=== PATIENT | female | born 1945 | race Caucasian/White ===

== ENCOUNTER 2016-06-29 16:20 | Emergency (ER) | payer MEDICARE, OTHER ==
[2016-06-29 16:34] VITALS: TEMP 98.4
--- NOTE | 2016-06-29 17:12 | ED ---
Skin/Abscess/FB HPI - General Chief complaint: Skin/Abscess/Foreign Body Stated complaint: Skin Condition Time Seen by Provider: 06/29/16 16:57 Source: patient, RN notes reviewed Mode of arrival: ambulatory Limitations: no limitations - History of Present Illness Initial comments: Patient is a 70-year-old female presents emergency room for evaluation of a rash. Patient states she began developing rash over bilateral arms and back with a past 3 days. Patient states the rash is very itchy. Patient states she' s been itching at the area which has been causing scabs. Patient states she had an area over her right upper arm that she was itching and causes a large scab. Patient denies any pus or drainage. Patient denies any surrounding redness or streaking. Patient denies fevers or chills. Patient denies recent changes in body lotions, detergents, body washes, shampoos, conditioners, perfumes. Patient states that she's also experiencing vaginal irritation. Patient states the area is very itchy. Patient states she was wiping herself after urinating and noticed blood on the toilet paper. Patient also states she' s having slight pain and burning during urination. Patient does state she has a history of urinary tract infections. Patient states she hasn't been sexually active in many years. Patient denies abdominal pain. Patient denies flank pain. Patient denies nausea or vomiting. Patient denies headache or dizziness. Patient denies chest pain or shortness of breath. - Related Data Home Medications Medication Instructions Recorded Confirmed cloNIDine HCL [Clonidine HCl] 0.1 mg PO BID 06/29/15 06/29/16 metFORMIN HCL [Glucophage] 500 mg PO AC-BID 10/07/15 06/29/16 Calcium Carbonate [Calcium] 600 mg PO DAILY 06/29/16 06/29/16 Cholecalciferol [Vitamin D3] 1,000 unit PO DAILY 06/29/16 06/29/16 Cyanocobalamin (Vitamin B-12) 1,000 mcg PO DAILY 06/29/16 06/29/16 [Vitamin B-12] HYDROcodone/APAP 10-325MG [[place] 1 tab PO QID PRN 06/29/16 06/29/16 10-325] Previous Rx's Medication Instructions Recorded Cephalexin [Keflex] 500 mg PO Q6HR #40 cap 06/29/16 Mupirocin 2% Oint [Bactroban 2% 1 applic TOPICAL TID 10 Days 06/29/16 Oint] Allergies Allergy/AdvReac Type Severity Reaction Status Date / Time hydroxyzine HCl Allergy Intermediate Hallucinati Verified 06/29/16 17:29 [From Vistaril] ons hydroxyzine pamoate Allergy Intermediate Hallucinati Verified 06/29/16 17:29 [From Vistaril] ons promethazine HCl Allergy Intermediate Anaphylaxis Verified 06/29/16 17:29 [From Phenergan] codeine Allergy Mild Nausea Verified 06/29/16 17:29 sulfamethoxazole Allergy Mild Nausea Verified 06/29/16 17:29 [From Bactrim] trimethoprim [From Bactrim] Allergy Mild Nausea Verified 06/29/16 17:29 prochlorperazine edisylate Allergy Unknown Verified 06/29/16 17:29 [From Compazine] prochlorperazine maleate Allergy Unknown Verified 06/29/16 17:29 [From Compazine] Review of Systems ROS Statement: Those systems with pertinent positive or pertinent negative responses have been documented in the HPI. ROS Other: All systems not noted in ROS Statement are negative. 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 SHE DRIVES A CAR. Smoking Status: Never smoker Past Alcohol Use History: None Reported Past Drug Use History: None Reported Additional Drug Use History / Comment(s): PT HAS NOT USED OPIATES IN 3 YEARS. - Past Family History Father Family Medical History: COPD Additional Family Medical History / Comment(s): FATHER AT AGE 72 YRS OF AGE - HE OF EMPHYSEMA. Mother Family Medical History: Diabetes Mellitus Additional Family Medical History / Comment(s): MOTHER AT AGE 73YRS. General Exam - General Exam Comments Initial Comments: sitting in exam room, no acute distress. Limitations: no limitations General appearance: alert, in no apparent distress Head exam: Present: atraumatic, normocephalic, normal inspection Eye exam: Present: normal appearance ENT exam: Present: normal exam Neck exam: Present: normal inspection Respiratory exam: Present: normal lung sounds bilaterally. Absent: respiratory distress Cardiovascular Exam: Present: regular rate, normal rhythm, normal heart sounds Speculum exam: Present: erythema, other (erythematous, chapped area around the vaginal opening and b/l labia majora). Absent: vaginal discharge Neurological exam: Present: alert, oriented X3, CN II-XII intact, normal gait Psychiatric exam: Present: normal affect, normal mood Skin exam: Present: warm, dry, other (multiple scab-like lesions over bilateral arms. Large 3 cm in diameter scab over the right upper arm.no surrounding erythema. No streaking. No pus or drainage from the areas.) Course Vital Signs 06/29/16 06/29/16 16:31 18:30 Temperature 98.4 F Pulse Rate 102 H 86 Respiratory 20 18 Rate Blood Pressure 139/84 156/84 O2 Sat by Pulse 96 99 Oximetry Medical Decision Making - Medical Decision Making patient is a 70-year-old female presents to the emergency room for evaluation of rash. Patient does appear to have folliculitis type rash. Patient does have excoriations from itching as well. Patient has a large scab Over right upper arm. Will place patient on Mupirocen ointment. Urinalysis also suspicious for urinary tract infection. Place patient on Keflex for prophylactic treatment for any skin infection secondary to itching and for urinary tract infection. patient's vaginal irritation possibly secondary to atrophic vaginitis. Advised patient to follow-up with [facility] for further evaluation/treatment. Patient states she understands everything that was discussed with her. Return parameters discussed. Case discussed with Dr. Moreno. - Lab Data Lab Results 06/29/16 Range/Units 17:14 Urine Color Light Yellow Urine Appearance Clear (Clear) Urine pH 6.0 (5.0-8.0) Ur Specific [place] 1.012 (1.001-1.035) Urine Protein Negative (Negative) Urine Glucose (UA) Negative (Negative) Urine Ketones Negative (Negative) Urine Blood Negative (Negative) Urine Nitrite Negative (Negative) Urine Bilirubin Negative (Negative) Urine Urobilinogen <2.0 (<2.0) mg/dL Ur Leukocyte Esterase Large H (Negative) Urine RBC 2 (0-5) /hpf Urine WBC 7 H (0-5) /hpf Urine Bacteria Rare H (None) /hpf Disposition Clinical Impression: Urinary tract infection, Atrophic vaginitis, Rash Disposition: HOME SELF-CARE Condition: Good Instructions: Urinary Tract Infection in Women (ED), Folliculitis (ED), Vaginal Atrophy (ED) Additional Instructions: Take antibiotics as directed. Apply mupirocin ointment to affected area as directed. Take benadryl every 4-6 hours as needed. Please follow up with primary care provider for reevaluation in 24-48 hours. Please follow-up with OB /[facility]. If any new symptom arises or symptoms worsen, return to ER as soon as possible. Prescriptions: Cephalexin [Keflex] 500 mg PO Q6HR #40 cap Mupirocin 2% Oint [Bactroban 2% Oint] 1 applic TOPICAL TID 10 Days Referrals: Rachel Valladares DO [Primary Care Provider] - 1-2 days Ashley Dumont MD [STAFF PHYSICIAN] - 1-2 days Time of Disposition: 18:03
[2016-06-29 17:39] LABS: Appearance,Urine Clear (Clear); Bacteria,Urine Rare /hpf; Bilirubin,Urine Negative (Negative); Glucose,Urine (UA) Negative (Negative); Ketones,Urine Negative (Negative); Leukocyte Esterase,Urine Large (Negative); Nitrite,Urine Negative (Negative); Particle Count 544; Protein,Urine Negative (Negative); RBC,Urine 2 /hpf (0-5); Specific Gravity,Urine 1.012 (1.001-1.035); UA Billing (MACRO vs. MICRO) MICRO; Urobilinogen,Urine <2.0 mg/dL (<2.0); WBC,Urine 7 /hpf (0-5)
[2016-06-29 18:31] VITALS: BP 156/84; PULSE 86; RESP 18
== END 2016-06-29 18:42 | disposition home or self-care (01) ==
LOC: EC 16:20
DX: N95.2 Postmenopausal atrophic vaginitis (principal); R21 Rash and other nonspecific skin eruption; E11.9 Type 2 diabetes mellitus without complications; I10 Essential (primary) hypertension; Z79.84 Long term (current) use of oral hypoglycemic drugs; Z79.899 Other long term (current) drug therapy; Z88.1 Allergy status to other antibiotic agents; Z88.5 Allergy status to narcotic agent; Z88.8 Allergy status to other drugs, medicaments and biological substances
CPT/HCPCS: 81001; 99283

== ENCOUNTER 2016-07-29 14:29 | Emergency (ER) | payer MEDICARE ==
[2016-07-29 14:33] VITALS: BP 136/68; PULSE 98; RESP 18; TEMP 98.3
--- NOTE | 2016-07-29 15:01 | ED ---
Lower Extremity Injury HPI - General Chief Complaint: Extremity Injury, Lower Stated Complaint: leg pain Time Seen by Provider: 07/29/16 14:43 Source: patient Mode of arrival: ambulatory Limitations: no limitations - History of Present Illness Initial Comments: 70-year-old female complaining of right knee pain for the last few weeks. Patient states that got worse yesterday after falling. Patient daughter states she has been under a lot of stress with her being ill. Patient states painful in the front of her knee. No previous injury no surgical history. She denies any numbness or tingling of that lower extremity. No back pain. Patient denies any head injury or loss of consciousness. Patient states it hurts to bear weight but is able to ambulate. MD Complaint: knee injury (right knee) -: days(s) Improves With: nothing Worsens With: weight bearing, movement, palpation Context: fall Associated Symptoms: ambulatory Treatments Prior to Arrival: NSAIDS - Related Data Home Medications Medication Instructions Recorded Confirmed cloNIDine HCL [Clonidine HCl] 0.1 mg PO BID 06/29/15 07/29/16 metFORMIN HCL [Glucophage] 500 mg PO AC-BID 10/07/15 07/29/16 Calcium Carbonate [Calcium] 600 mg PO DAILY 06/29/16 07/29/16 Cholecalciferol [Vitamin D3] 1,000 unit PO DAILY 06/29/16 07/29/16 Cyanocobalamin (Vitamin B-12) 1,000 mcg PO DAILY 06/29/16 07/29/16 [Vitamin B-12] HYDROcodone/APAP 10-325MG [[place] 1 tab PO QID PRN 06/29/16 07/29/16 10-325] Previous Rx's Medication Instructions Recorded Cephalexin [Keflex] 500 mg PO Q6HR #40 cap 06/29/16 Mupirocin 2% Oint [Bactroban 2% 1 applic TOPICAL TID 10 Days 06/29/16 Oint] Allergies Allergy/AdvReac Type Severity Reaction Status Date / Time hydroxyzine HCl Allergy Intermediate Hallucinati Verified 07/29/16 14:33 [From Vistaril] ons hydroxyzine pamoate Allergy Intermediate Hallucinati Verified 07/29/16 14:33 [From Vistaril] ons promethazine HCl Allergy Intermediate Anaphylaxis Verified 07/29/16 14:33 [From Phenergan] codeine Allergy Mild Nausea Verified 07/29/16 14:33 sulfamethoxazole Allergy Mild Nausea Verified 07/29/16 14:33 [From Bactrim] trimethoprim [From Bactrim] Allergy Mild Nausea Verified 07/29/16 14:33 prochlorperazine edisylate Allergy Unknown Verified 07/29/16 14:33 [From Compazine] prochlorperazine maleate Allergy Unknown Verified 07/29/16 14:33 [From Compazine] Review of Systems ROS Statement: Those systems with pertinent positive or pertinent negative responses have been documented in the HPI. ROS Other: All systems not noted in ROS Statement are negative. 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 Past Anesthesia/Blood Transfusion Reactions: No Reported Reaction Past Psychological History: Anxiety, Depression Smoking Status: Never smoker Past Alcohol Use History: None Reported Past Drug Use History: None Reported - Past Family History Father Family Medical History: COPD Additional Family Medical History / Comment(s): FATHER AT AGE 72 YRS OF AGE - HE OF EMPHYSEMA. Mother Family Medical History: Diabetes Mellitus Additional Family Medical History / Comment(s): MOTHER AT AGE 73YRS. General Exam Limitations: no limitations General appearance: alert, in no apparent distress Extremities exam: Present: normal inspection, full ROM, normal capillary refill. Absent: tenderness, pedal edema, joint swelling, calf tenderness Right Upper Leg exam: Present: normal inspection Knee exam: Present: normal inspection, full ROM, tenderness (right anterior knee ), swelling, pain/laxity with valgus Lower Leg exam: Present: normal inspection Neurological exam: Present: alert, oriented X3, CN II-XII intact Course Vital Signs 07/29/16 14:29 Temperature 98.3 F Pulse Rate 98 Respiratory 18 Rate Blood Pressure 136/68 O2 Sat by Pulse 94 L Oximetry Medical Decision Making - Medical Decision Making Reviewed x-ray negative for any acute changes patient aware. Slight degenerative changes noted. Andrzej wrap given patient to follow-up if not improving. Disposition Clinical Impression: Contusion of knee Disposition: HOME SELF-CARE Condition: Good Instructions: Knee Sprain (ED), Knee Pain (ED) Referrals: Rachel Valladares DO [Primary Care Provider] - 1-2 days Joshua Márquez MD [Medical Doctor] - 1-2 days Time of Disposition: 15:11
--- NOTE | 2016-07-29 15:08 | XR ---
EXAMINATION TYPE: XR knee 4V RT DATE OF EXAM: 07/29/2016 COMPARISON: 06/29/2015 HISTORY: Knee pain TECHNIQUE: 4 views FINDINGS: There is spurring of the medial femoral and tibial condyles. There is no sign of joint effu annette. I see no fracture nor dislocation. There is slight narrowing of medial joint space. IMPRESSION: Mild to moderate osteoarthritis. No fracture. No change.
== END 2016-07-29 15:15 | disposition home or self-care (01) ==
LOC: EC 14:29
DX: S80.01XA Contusion of right knee, initial encounter (principal); M25.861 Other specified joint disorders, right knee; E11.9 Type 2 diabetes mellitus without complications; I10 Essential (primary) hypertension; Z88.2 Allergy status to sulfonamides; Z88.5 Allergy status to narcotic agent; Z88.8 Allergy status to other drugs, medicaments and biological substances; Z79.84 Long term (current) use of oral hypoglycemic drugs; Z79.899 Other long term (current) drug therapy; W19.XXXA Unspecified fall, initial encounter
CPT/HCPCS: 99283

== ENCOUNTER 2016-09-26 23:06 | Emergency (ER) | payer MEDICARE ==
[2016-09-26 23:26] VITALS: RESP 16
--- NOTE | 2016-09-26 23:38 | ED ---
General Adult HPI - General Chief complaint: Fall Stated complaint: Fall 2 days ago. Time Seen by Provider: 09/26/16 23:31 Source: patient, RN notes reviewed Mode of arrival: ambulatory Limitations: no limitations - History of Present Illness Initial comments: Patient 71-year-old female who presents emergency room today with a chief complaint of fall occurred 2 days ago. She does admit that she slipped on the bathroom floor fell down onto the right side. Does admit that she hit her head but did not lose conscious. Denies any headache or visual changes. Does admit to pain to the right shoulder. Admits to pain to her bilateral hips. States worse with certain movements of all these areas. She denies any other complaints associated symptoms. Patient denies any recent fever, chills, shortness of breath, chest pain, back pain, abdominal pain, nausea or vomiting, numbness or tingling, dysuria or hematuria, constipation or diarrhea, headaches or visual changes, or any other complaints. - Related Data Home Medications Medication Instructions Recorded Confirmed cloNIDine HCL [Clonidine HCl] 0.1 mg PO BID 06/29/15 09/26/16 metFORMIN HCL [Glucophage] 500 mg PO BID-W/MEALS 10/07/15 09/26/16 Calcium Carbonate [Calcium] 600 mg PO DAILY 06/29/16 09/26/16 Cholecalciferol [Vitamin D3] 1,000 unit PO DAILY 06/29/16 09/26/16 Cyanocobalamin (Vitamin B-12) 1,000 mcg PO DAILY 06/29/16 09/26/16 [Vitamin B-12] HYDROcodone/APAP 10-325MG [[place] 1 tab PO QID PRN 06/29/16 09/26/16 10-325] Omeprazole 20 mg PO DAILY 09/26/16 09/26/16 Allergies Allergy/AdvReac Type Severity Reaction Status Date / Time promethazine HCl Allergy Intermediate Anaphylaxis Verified 09/26/16 23:26 [From Phenergan] prochlorperazine Allergy Anaphylaxis Verified 09/26/16 23:45 codeine AdvReac Mild Nausea Verified 09/26/16 23:38 sulfamethoxazole AdvReac Mild Nausea Verified 09/26/16 23:38 [From Bactrim] trimethoprim [From Bactrim] AdvReac Mild Nausea Verified 09/26/16 23:38 hydroxyzine AdvReac Hallucinati Verified 09/26/16 23:45 ons Review of Systems ROS Statement: Those systems with pertinent positive or pertinent negative responses have been documented in the HPI. ROS Other: All systems not noted in ROS Statement are negative. 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 Past Anesthesia/Blood Transfusion Reactions: No Reported Reaction Past Psychological History: Anxiety, Depression Smoking Status: Never smoker Past Alcohol Use History: None Reported Past Drug Use History: None Reported - Past Family History Father Family Medical History: COPD Additional Family Medical History / Comment(s): FATHER AT AGE 72 YRS OF AGE - HE OF EMPHYSEMA. Mother Family Medical History: Diabetes Mellitus Additional Family Medical History / Comment(s): MOTHER AT AGE 73YRS. General Exam - General Exam Comments Initial Comments: General: The patient is awake and alert, in no distress, and does not appear acutely ill. Eye: Pupils are equal, round and reactive to light, extra-ocular movements are intact. No nystagmus. There is normal conjunctiva bilaterally. No signs of icterus. Ears, nose, mouth and throat: There are moist mucous membranes and no oral lesions. Neck: The neck is supple, there is no tenderness or JVD. Cardiovascular: There is a regular rate and rhythm. No murmur, rub or gallop is appreciated. Respiratory: Lungs are clear to auscultation, respirations are non-labored, breath sounds are equal. No wheezes, stridor, rales, or rhonchi. Musculoskeletal: Normal ROM. Patient does have a normal appearance of the right shoulder no signs of swelling bruising. Hips are normal bilaterally. Mild tenderness to the lateral aspect of the hips. Tender over the anterior and posterior aspect of the right shoulder shows full range motion of the right elbow and wrist area. No cervical, thoracic, lumbar spine tenderness. Strength 5/5. Sensation intact. Pulses equal bilaterally 2+. Neurological: A&O x 3. CN II-XII intact, There are no obvious motor or sensory deficits. Coordination appears grossly intact. Speech is normal. Skin: Skin is warm and dry and no rashes or lesions are noted. Psychiatric: Cooperative, appropriate mood & affect, normal judgment. Limitations: no limitations Course Vital Signs 09/26/16 23:21 Temperature 98.6 F Pulse Rate 96 Respiratory 16 Rate Blood Pressure 119/70 O2 Sat by Pulse 95 Oximetry Medical Decision Making - Medical Decision Making Patient's x-rays of the right shoulder, right and left hips reviewed negative for any acute fracture dislocation. Results were discussed with the patient. Patient will be discharged home advised follow-up orthopedics if symptoms persist. Advised return for any other concerns. She states her stay. Disposition Clinical Impression: Fall, Shoulder pain Disposition: HOME SELF-CARE Condition: Good Instructions: Shoulder Pain (ED) Additional Instructions: Please follow-up with orthopedics over the next 3-5 days if symptoms persist for further evaluation. Please return to emergency room if any symptoms increase or worsen or for any other concerns. Referrals: Rachel Valladares DO [Primary Care Provider] - 1-2 days Time of Disposition: 00:41
[2016-09-27 00:48] VITALS: BP 130/70; PULSE 92; TEMP 97.3
--- NOTE | 2016-09-27 00:49 | XR ---
EXAM: XR Pelvis Complete, 3 or More Views CLINICAL HISTORY: Pain TECHNIQUE: Frontal and lateral or oblique views of the pelvis. COMPARISON: No relevant prior studies available. FINDINGS: Bones/joints: No acute fracture or traumatic malalignment. Degenerative changes of the visualized lower lumbar spine and both hips. Soft tissues: Punctate calcifications are seen within the pelvis, likely phleboliths. IMPRESSION: No acute fracture or traumatic malalignment.
--- NOTE | 2016-09-27 00:49 | XR ---
EXAM: XR Right Shoulder Complete, 2 or More Views CLINICAL HISTORY: Reason: Pain TECHNIQUE: Two or more views of the right shoulder. COMPARISON: No relevant prior studies available. FINDINGS: Bones/joints: No evidence of acute fracture or traumatic malalignment. Abnormal contour of the posterolateral humeral head which may represent a Hill-Sachs deformity from prior trauma. Degenerative changes of the glenohumeral and acromioclavicular joint. Soft tissues: Unremarkable. IMPRESSION: No acute findings.
== END 2016-09-27 00:47 | disposition home or self-care (01) ==
LOC: EC 23:06
DX: M25.511 Pain in right shoulder (principal); M25.552 Pain in left hip; M25.551 Pain in right hip; E11.9 Type 2 diabetes mellitus without complications; M79.7 Fibromyalgia; K21.9 Gastro-esophageal reflux disease without esophagitis; I10 Essential (primary) hypertension; M19.90 Unspecified osteoarthritis, unspecified site; M06.9 Rheumatoid arthritis, unspecified; F32.9 Major depressive disorder, single episode, unspecified; F41.9 Anxiety disorder, unspecified; Z79.84 Long term (current) use of oral hypoglycemic drugs; Z79.899 Other long term (current) drug therapy; Z88.5 Allergy status to narcotic agent; Z88.2 Allergy status to sulfonamides; Z88.8 Allergy status to other drugs, medicaments and biological substances
CPT/HCPCS: 73521; 99283

== ENCOUNTER 2016-10-08 21:07 | Emergency (ER) | payer MEDICARE ==
--- NOTE | 2016-10-08 22:10 | XR ---
EXAMINATION TYPE: XR ribs LT w pa chest xray DATE OF EXAM: 10/08/2016 COMPARISON: NONE HISTORY: Left RIBS TECHNIQUE: Frontal chest 2V left RIBS FINDINGS: No acute displaced fractures are evident. No pneumothorax is evident. Lung harrell are clear . IMPRESSION: 1. Normal left ribs
--- NOTE | 2016-10-08 23:01 | ED ---
General Adult HPI - General Chief complaint: Fall Stated complaint: Weakness Time Seen by Provider: 10/08/16 21:37 Source: patient, RN notes reviewed Mode of arrival: wheelchair Limitations: no limitations - History of Present Illness Initial comments: 71-year-old female presents to the emergency room chief complaint of fall injury. Patient states that she was at her chest that she tripped and fell. Patient states she hit her head as well as left side of her ribs. Patient states this happened 3 days ago. Patient states she did not pass out. She denies any neck pain. She states she feels generally sore but the worst areas or her head in her ribs. Patient states that it was a chicken father is no lightheadedness dizziness no chest pain or shortness of breath prior to the fall. Patient was concerned due to her pain and the fact it was not improving so she thought that she should be seen. Patient denies any recent fever, chills , shortness of breath, back pain, abdominal pain, nausea vomiting, numbness or tingling, dysuria or hematuria, constipation or diarrhea, visual changes, or any other current symptoms. - Related Data Home Medications Medication Instructions Recorded Confirmed cloNIDine HCL [Clonidine HCl] 0.1 mg PO BID 06/29/15 10/08/16 metFORMIN HCL [Glucophage] 500 mg PO BID-W/MEALS 10/07/15 10/08/16 Calcium Carbonate [Calcium] 600 mg PO DAILY 06/29/16 10/08/16 Cholecalciferol [Vitamin D3] 1,000 unit PO DAILY 06/29/16 10/08/16 Cyanocobalamin (Vitamin B-12) 1,000 mcg PO DAILY 06/29/16 10/08/16 [Vitamin B-12] HYDROcodone/APAP 10-325MG [[place] 1 tab PO QID PRN 06/29/16 10/08/16 10-325] Omeprazole 20 mg PO DAILY 09/26/16 10/08/16 Allergies Allergy/AdvReac Type Severity Reaction Status Date / Time promethazine HCl Allergy Intermediate Anaphylaxis Verified 10/08/16 21:45 [From Phenergan] prochlorperazine Allergy Anaphylaxis Verified 10/08/16 21:45 codeine AdvReac Mild Nausea Verified 10/08/16 21:45 sulfamethoxazole AdvReac Mild Nausea Verified 10/08/16 21:45 [From Bactrim] trimethoprim [From Bactrim] AdvReac Mild Nausea Verified 10/08/16 21:45 hydroxyzine AdvReac Hallucinati Verified 10/08/16 21:45 ons Review of Systems ROS Statement: Those systems with pertinent positive or pertinent negative responses have been documented in the HPI. ROS Other: All systems not noted in ROS Statement are negative. 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 Past Anesthesia/Blood Transfusion Reactions: No Reported Reaction Past Psychological History: Anxiety, Depression Smoking Status: Never smoker Past Alcohol Use History: None Reported Past Drug Use History: None Reported - Past Family History Father Family Medical History: COPD Additional Family Medical History / Comment(s): FATHER AT AGE 72 YRS OF AGE - HE OF EMPHYSEMA. Mother Family Medical History: Diabetes Mellitus Additional Family Medical History / Comment(s): MOTHER AT AGE 73YRS. General Exam Limitations: no limitations General appearance: alert, in no apparent distress Head exam: Present: other (Forehead contusion) Eye exam: Present: normal appearance, PERRL, EOMI. Absent: scleral icterus, conjunctival injection, periorbital swelling ENT exam: Present: normal exam, mucous membranes moist Respiratory exam: Present: normal lung sounds bilaterally, chest wall tenderness (Left lateral chest wall no bruising noted). Absent: respiratory distress, wheezes, rales, rhonchi, stridor Cardiovascular Exam: Present: regular rate, normal rhythm, normal heart sounds. Absent: systolic murmur, diastolic murmur, rubs, gallop, clicks GI/Abdominal exam: Present: soft, normal bowel sounds. Absent: distended, tenderness, guarding, rebound, rigid Neurological exam: Present: alert, oriented X3, CN II-XII intact Psychiatric exam: Present: normal affect, normal mood Skin exam: Present: warm, dry, intact, normal color. Absent: rash Course Vital Signs 10/08/16 21:13 Temperature 97.1 F L Pulse Rate 83 Respiratory 16 Rate Blood Pressure 110/69 O2 Sat by Pulse 97 Oximetry Medical Decision Making - Medical Decision Making 71-year-old female presents emergency room chief complaint of fall. patient imaging reviewed. This time patient's imaging reveals no acute process. This time we discussed using Motrin Tylenol for pain and ice. We discussed return parameters follow-up and all patient's questions. He stated he understood they are given the plan. At this time and will be discharged home. - Radiology Data Radiology results: report reviewed, image reviewed Disposition Clinical Impression: Forehead contusion, Contusion of rib on left side Disposition: HOME SELF-CARE Condition: Stable Instructions: Fall Prevention for Older Adults (ED), Contusion in Adults (ED) Additional Instructions: Please use medication as discussed. Please follow up with family doctor if symptoms have not improved over the next two days. Please return to the emergency room if your symptoms increase or worsen or for any other concerns. Referrals: Rachel Valladares DO [Primary Care Provider] - 1-2 days Time of Disposition: 23:55
--- NOTE | 2016-10-08 23:51 | CT ---
CT Head without contrast INDICATION: pain TECHNIQUE: Axial cuts of the brain are obtained from the posterior fossa to the cranial vault. No IV contrast is administered. Radiation Dose: CTDIvol: 57.4 mGy DLP: 1047.1 mGy-cm This CT exam was performed using one or more of the following dose reduction techniques: automated exposure control, adjustment of the mA and/or kV according to patient size, and/or use of iterative reconstruction technique. COMPARISON: CT head 09/05/14 FINDINGS: No evidence for acute intracranial hemorrhage, hydrocephalus, or herniation. No evidence for a depressed calvarial fracture. 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 Partially empty sella. There is generalized volume loss. Scattered periventricular and subcortical hypoattenuation, nonspecific but likely related to chronic microvascular ischemic changes. Intracranial vascular calcifications. The bilateral mastoid air cells are essentially clear. Trace mucosal thickening of the right sphenoid sinus. IMPRESSION: No evidence for acute intracranial hemorrhage, hydrocephalus, or herniation. CT cervical spine without contrast INDICATION: pain TECHNIQUE: CT cervical spine without contrast. Radiation Dose: CTDIvol: 13.6 mGy DLP: 346.1 mGy-cm This CT exam was performed using one or more of the following dose reduction techniques: automated exposure control, adjustment of the mA and/or kV according to patient size, and/or use of iterative reconstruction technique. COMPARISON: none FINDINGS: Examination is limited by streak artifact. Evaluation for fractures is limited by decreased osseous mineralization. No definite evidence for an acute displaced fracture of the cervical spine. There appears to be trace anterolisthesis of C2/C3 and trace retrolisthesis of C6/C7, nonspecific and may be related to positioning/degenerative changes. No significant prevertebral edema is appreciated. Degenerative changes of the cervical spine. Carotid artery calcifications. Calcification of the aortic arch. There may be some scarring at the bilateral lung apices. Nonspecific scattered superior mediastinal lymph nodes. IMPRESSION: 1. No definite evidence for acute fracture of the cervical spine. If further evaluation is clinically warranted MRI may be considered. 2. There appears to be trace anterolisthesis of C2/C3 and trace retrolisthesis of C6/C7, nonspecific and may be related to positioning/degenerative changes.
[2016-10-08] MEDS ORDERED: KETOROLAC 60 MG/2 ML VIAL IM STA (23:54)
[2016-10-08] MEDS ORDERED: HYDROcodone/APAP 5-325MG 1 EACH TAB PO STA (23:57)
[2016-10-09 00:16] VITALS: BP 112/67; PULSE 82; RESP 18; TEMP 97.7
== END 2016-10-09 00:13 | disposition home or self-care (01) ==
LOC: EC 21:07
DX: S00.83XA Contusion of other part of head, initial encounter (principal); S20.212A Contusion of left front wall of thorax, initial encounter; E11.9 Type 2 diabetes mellitus without complications; M79.7 Fibromyalgia; K21.9 Gastro-esophageal reflux disease without esophagitis; I10 Essential (primary) hypertension; F32.9 Major depressive disorder, single episode, unspecified; F41.9 Anxiety disorder, unspecified; Z79.84 Long term (current) use of oral hypoglycemic drugs; Z79.899 Other long term (current) drug therapy; Z88.2 Allergy status to sulfonamides; Z88.5 Allergy status to narcotic agent; Z88.8 Allergy status to other drugs, medicaments and biological substances; W01.10XA Fall on same level from slipping, tripping and stumbling with subsequent striking against unspecified object, initial encounter; Y92.000 Kitchen of unspecified non-institutional (private) residence as the place of occurrence of the external cause
CPT/HCPCS: 70450; 72125; 99284

== ENCOUNTER 2017-11-14 12:32 | Emergency (ER) | payer MEDICARE ==
[2017-11-14 12:54] VITALS: RESP 18
--- NOTE | 2017-11-14 13:36 | ED ---
General Adult HPI - General Chief complaint: Dental/Oral Stated complaint: dental pain Source: patient Mode of arrival: ambulatory Limitations: no limitations - History of Present Illness Initial comments: Dictation was produced using [employer] dictation software. please excuse any grammatical, word or spelling errors. Chief Complaint: 72-year-old female with extremity poor dentition presents with left-sided dental pain. History of Present Illness: Patient is a 72-year-old female who insisted on checking herself in despite her being the main reason why they came to the hospital. She states she's been having multiple days of dental pain. She has poor dentition. She refuses to see the dentist. She requests antibiotics. Patient is uncooperative with physical examination. States that she denies any constitutional symptoms. The ROS documented in this emergency department record has been reviewed and confirmed by me. Those systems with pertinent positive or negative responses have been documented in the HPI. All other systems are other negative and/or noncontributory. - Related Data Home Medications Medication Instructions Recorded Confirmed Buprenorphine HCl/Naloxone HCl 1 film PO TID 11/14/17 11/14/17 [Suboxone 8 mg-2 mg Sl Film] busPIRone HCL [Buspar] 7.5 mg PO BID 11/14/17 11/14/17 Previous Rx's Medication Instructions Recorded Penicillin V Potassium [Pen Vee K] 500 mg PO QID 7 Days #28 tablet 11/14/17 Allergies Allergy/AdvReac Type Severity Reaction Status Date / Time promethazine HCl Allergy Intermediate Anaphylaxis Verified 11/14/17 13:22 [From Phenergan] prochlorperazine Allergy Anaphylaxis Verified 11/14/17 13:22 codeine AdvReac Mild Nausea Verified 11/14/17 13:22 sulfamethoxazole AdvReac Mild Nausea Verified 11/14/17 13:22 [From Bactrim] trimethoprim [From Bactrim] AdvReac Mild Nausea Verified 11/14/17 13:22 hydroxyzine AdvReac Hallucinati Verified 11/14/17 13:22 ons Review of Systems ROS Statement: Those systems with pertinent positive or pertinent negative responses have been documented in the HPI. ROS Other: All systems not noted in ROS Statement are negative. 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 Past Anesthesia/Blood Transfusion Reactions: No Reported Reaction Past Psychological History: Anxiety, Depression Smoking Status: Never smoker Past Alcohol Use History: None Reported Past Drug Use History: None Reported - Past Family History Father Family Medical History: COPD Additional Family Medical History / Comment(s): FATHER AT AGE 72 YRS OF AGE - HE OF EMPHYSEMA. Mother Family Medical History: Diabetes Mellitus Additional Family Medical History / Comment(s): MOTHER AT AGE 73YRS. General Exam - General Exam Comments Initial Comments: PHYSICAL EXAM: General Impression: Alert and oriented x3, not in acute distress HEENT: Normocephalic atraumatic, extra-ocular movements intact, pupils equal and reactive to light bilaterally, mucous membranes moist, shortened with poor dentition. Cardiovascular: Heart regular rate and rhythm, S1&S2 audible, no murmurs, rubs or gallops Chest: Lungs clear to auscultation bilaterally, no rhonchi, no wheeze, no rales Abdomen: Bowel sounds present, abdomen soft, non-tender, non-distended, no organomegaly Musculoskeletal: Pulses present and equal in all extremities, no peripheral edema Motor: Power 5/5 bilaterally, no focal deficits noted Neurological: CN II-XII grossly intact, no focal motor or sensory deficits noted Skin: Intact with no visualized rashes Psych: Normal affect and mood Limitations: no limitations Course Vital Signs 11/14/17 12:52 Temperature 98.9 F Pulse Rate 89 Respiratory 18 Rate Blood Pressure 166/80 O2 Sat by Pulse 95 Oximetry Medical Decision Making - Medical Decision Making ED course: 72-year-old female presents with dental pain. Patient is uncooperative with physical examination. Briefly oral examination did not show any gingival abscesses. Patient requests penicillin. She is unwilling to follow-up with the dentist secondary to personal reasons. Discussed patient that is very important that she follow up with dentist for further intervention. She states she'll consider it. Patient given prescription for penicillin. Patient hemodynamic stable. Patient be discharged. Disposition Clinical Impression: Pain, dental Disposition: HOME SELF-CARE Condition: Good Instructions: Toothache (ED) Prescriptions: Penicillin V Potassium [Pen Vee K] 500 mg PO QID 7 Days #28 tablet Is patient prescribed a controlled substance at d/c from ED?: No Referrals: Nova Pino MD [Primary Care Provider] - 1-2 days Time of Disposition: 13:36
[2017-11-14 14:10] VITALS: BP 129/60; PULSE 82; TEMP 98.6
== END 2017-11-14 14:08 | disposition home or self-care (01) ==
LOC: EC 12:32
DX: K08.89 Other specified disorders of teeth and supporting structures (principal); F41.9 Anxiety disorder, unspecified; F32.9 Major depressive disorder, single episode, unspecified; Z90.49 Acquired absence of other specified parts of digestive tract; Z90.710 Acquired absence of both cervix and uterus; Z79.899 Other long term (current) drug therapy; Z88.1 Allergy status to other antibiotic agents; Z88.2 Allergy status to sulfonamides; Z88.5 Allergy status to narcotic agent; Z88.8 Allergy status to other drugs, medicaments and biological substances
CPT/HCPCS: 99282

== ENCOUNTER 2018-07-11 08:02 | Emergency (ER) | payer MEDICARE ==
[2018-07-11 08:06] VITALS: BP 131/75; PULSE 90; RESP 18; TEMP 98
[2018-07-11] MEDS ORDERED: HYDROmorphone 0.5 MG/0.5 ML SYRINGE IM STA (08:21)
--- NOTE | 2018-07-11 08:24 | ED ---
General Adult HPI - General Chief complaint: Extremity Problem,Nontraumatic Stated complaint: lt knee pain Time Seen by Provider: 07/11/18 08:07 Source: patient Mode of arrival: ambulatory Limitations: no limitations - History of Present Illness Initial comments: Dictation was produced using [employer] dictation software. please excuse any grammatical, word or spelling errors. Chief Complaint: 72-year-old female with past medical history of bilateral knee arthritis presents with left knee pain. History of Present Illness: Patient is 72-year-old female she knows that she has significant osteoporosis arthritis to bilateral knees. Patient does not want surgery. She is on ibuprofen or free medications prescribed by her primary care physician. She was evaluated at her bases office yesterday for knee pain. She was scheduled to have outpatient labs performed. She did not go to get her labs performed. She states that she is having significant knee pain that is like her usual pain however increased in intensity. Denies any fever, chills or night sweats. Denies any swelling of the left lower extremity. The ROS documented in this emergency department record has been reviewed and confirmed by me. Those systems with pertinent positive or negative responses have been documented in the HPI. All other systems are other negative and/or noncontributory. PHYSICAL EXAM: General Impression: Alert and oriented x3, not in acute distress HEENT: Normocephalic atraumatic, extra-ocular movements intact, pupils equal and reactive to light bilaterally, mucous membranes moist. Cardiovascular: Heart regular rate and rhythm, S1&S2 audible, no murmurs, rubs or gallops Chest: Lungs clear to auscultation bilaterally, no rhonchi, no wheeze, no rales Abdomen: Bowel sounds present, abdomen soft, non-tender, non-distended, no organomegaly Musculoskeletal: Pulses present and equal in all extremities, no peripheral edema, bilateral hypertrophic joints, mild tenderness to palpation over the medial aspect, mild pain elicited with flexion and extension of the knees Motor: no focal deficits noted Neurological: CN II-XII grossly intact, no focal motor or sensory deficits noted, not ataxic Skin: Intact with no visualized rashes Psych: Normal affect and mood ED course: 72-year-old female presents with acute on chronic knee pain. She has a history of severe arthritis to surgery. She reports that she has been offered bilateral knee replacements however refused. Vital signs upon arrival are within acceptable limits. X-rays are nonacute. Patient given IM analgesia. Patient clear for discharge. Patient told to follow up with orthopedic surgery for outpatient management of these symptoms. Patient exhibiting pain seeking behavior. - Related Data Home Medications Medication Instructions Recorded Confirmed Buprenorphine HCl/Naloxone HCl 1 film PO TID 11/14/17 07/11/18 [Suboxone 8 mg-2 mg Sl Film] Acetaminophen Tab [Tylenol] 500 mg PO Q8H 07/11/18 07/11/18 Diazepam [Valium] 5 mg PO HS PRN 07/11/18 07/11/18 Penicillin V Potassium [Pen Vee K] 500 mg PO TID 07/11/18 07/11/18 Ecm-[id number]-Izjhg Acid 1 cap PO DAILY 07/11/18 07/11/18 [-U Capsule (formulary)] busPIRone HCL [Buspar] 7.5 mg PO QID 07/11/18 07/11/18 cloNIDine HCL [Catapres] 0.2 mg PO DAILY 07/11/18 07/11/18 Allergies Allergy/AdvReac Type Severity Reaction Status Date / Time promethazine HCl Allergy Intermediate Anaphylaxis Verified 07/11/18 08:05 [From Phenergan] Iodinated Contrast- Oral and Allergy Unknown Verified 07/11/18 08:40 IV Dye prochlorperazine Allergy Anaphylaxis Verified 07/11/18 08:05 codeine AdvReac Mild Nausea Verified 07/11/18 08:05 sulfamethoxazole AdvReac Mild Nausea Verified 07/11/18 08:05 [From Bactrim] trimethoprim [From Bactrim] AdvReac Mild Nausea Verified 07/11/18 08:05 hydroxyzine AdvReac Hallucinati Verified 07/11/18 08:05 ons Review of Systems ROS Statement: Those systems with pertinent positive or pertinent negative responses have been documented in the HPI. ROS Other: All systems not noted in ROS Statement are negative. 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 Past Anesthesia/Blood Transfusion Reactions: No Reported Reaction Past Psychological History: Anxiety, Depression Smoking Status: Never smoker Past Alcohol Use History: None Reported Past Drug Use History: None Reported - Past Family History Father Family Medical History: COPD Additional Family Medical History / Comment(s): FATHER AT AGE 72 YRS OF AGE- HE OF EMPHYSEMA. Mother Family Medical History: Diabetes Mellitus Additional Family Medical History / Comment(s): MOTHER AT AGE 73YRS. General Exam Limitations: no limitations Course Vital Signs 07/11/18 08:03 Temperature 98.0 F Pulse Rate 90 Respiratory 18 Rate Blood Pressure 131/75 O2 Sat by Pulse 100 Oximetry Disposition Clinical Impression: Knee pain Disposition: HOME SELF-CARE Condition: Good Instructions (If sedation given, give patient instructions): Knee Pain (ED) Is patient prescribed a controlled substance at d/c from ED?: No Referrals: Syed Schmidt MD [STAFF PHYSICIAN] - 1-2 days Time of Disposition: 09:12
--- NOTE | 2018-07-11 08:58 | XR ---
EXAMINATION TYPE: XR knee 4V LT DATE OF EXAM: 07/11/2018 COMPARISON: None HISTORY: Pain across patella TECHNIQUE: 4 view left knee is performed. FINDINGS: As a tiny medial tibial plateau spur. No joint effusion is evident. Joint spaces appear pre served. No acute fracture or dislocations are evident. Patellofemoral joint space appears normal. IMPRESSION: 1. No acute osseous abnormality left knee. Subtle degenerative changes may be in the medial compartm ent.
== END 2018-07-11 09:20 | disposition home or self-care (01) ==
LOC: EC 08:02
DX: M25.562 Pain in left knee (principal); I10 Essential (primary) hypertension; M79.7 Fibromyalgia; M19.90 Unspecified osteoarthritis, unspecified site; M06.9 Rheumatoid arthritis, unspecified; F32.9 Major depressive disorder, single episode, unspecified; F41.9 Anxiety disorder, unspecified; Z79.899 Other long term (current) drug therapy; Z88.5 Allergy status to narcotic agent; Z91.041 Radiographic dye allergy status; Z88.8 Allergy status to other drugs, medicaments and biological substances; Z88.1 Allergy status to other antibiotic agents; Z88.2 Allergy status to sulfonamides; Z53.29 Procedure and treatment not carried out because of patient's decision for other reasons
CPT/HCPCS: 73564; 99283; 96372; J1170

== ENCOUNTER → 2018-07-11 | Outpatient (CLI) | payer MEDICARE ==
[2018-07-11 10:30] LABS: HCT 37.2 % (34.0-46.0); MCH 29.2 pg (25.0-35.0); MCHC 32.4 g/dL (31.0-37.0); MCV 90.3 fL (80.0-100.0); Mean Platelet Volume 7.8; Platelet Count 158 k/uL (150-450); RBC 4.12 m/uL (3.80-5.40); RDW 15.1 % (11.5-15.5); WBC 5.8 k/uL (3.8-10.6)
[2018-07-11 12:50] LABS: Erythrocyte Sedimentation Rate 11 mm/hr (0-20)
[2018-07-11 17:23] LABS: Albumin 4.5 g/dL (3.80-4.90); Albumin/Globulin Ratio 2.65 (1.60-3.17); Anion Gap 7.4 mmol/L (4.00-12.00); Calcium 9.1 mg/dL (8.7-10.3); Carbon Dioxide 29.6 mmol/L (21.6-31.8); Globulin 1.7 g/dL (1.6-3.3); LDL Cholesterol,Calculated 23.4 mg/dL (0.0-131.0); Total Bilirubin 0.4 mg/dL (0.3-1.2); Total Protein 6.2 g/dL (6.2-8.2); VLDL Calculation 13.6 mg/dL (5.00-40.00)
== END | disposition home or self-care (01) ==
LOC: LABWHC1 09:38
PROVIDERS: ATTEND Internal Medicine
DX: G47.00 Insomnia, unspecified (principal); M25.50 Pain in unspecified joint
CPT/HCPCS: 36415; 80053; 80061; 84439; 84443; 85027; 85652

== ENCOUNTER 2018-09-07 18:20 | Emergency (ER) | payer MEDICARE ==
--- NOTE | 2018-09-07 18:54 | ED ---
General Adult HPI - General Chief complaint: Neuro Symptoms/Deficit Stated complaint: Facial numbness Time Seen by Provider: 09/07/18 18:33 Source: patient, RN notes reviewed Mode of arrival: ambulatory Limitations: no limitations - History of Present Illness Initial comments: Patient is a pleasant 72-year-old female presenting to the emergency Department with right facial paresthesias. Onset of symptoms was when she woke early this morning around 4:30. Symptoms have been steady since that time. Patient denies any weakness. No confusion. No speech problems. No difficulty with walking. Patient does have recent ear infection on the right side and her doctor gave her ear drops for this. - Related Data Home Medications Medication Instructions Recorded Confirmed Acetaminophen Tab [Tylenol] 500 mg PO Q8H PRN 07/11/18 09/07/18 Diazepam [Valium] 5 mg PO HS 07/11/18 09/07/18 Penicillin V Potassium [Pen Vee K] 500 mg PO TID 07/11/18 09/07/18 Aspirin 325 mg PO DAILY PRN 09/07/18 09/07/18 Buprenorphine HCl [Subutex] 8 mg SL TID PRN 09/07/18 09/07/18 Nprjklyj-Amdnucvbm-Pt Otic 2 drops BOTH EARS Q6H 09/07/18 09/07/18 [Cortisporin Otic Soln] Omeprazole 20 mg PO BID 09/07/18 09/07/18 busPIRone HCL 15 mg PO TID PRN 09/07/18 09/07/18 cloNIDine HCL [Catapres] 0.1 mg PO BID 09/07/18 09/07/18 Allergies Allergy/AdvReac Type Severity Reaction Status Date / Time promethazine HCl Allergy Intermediate Anaphylaxis Verified 09/07/18 19:07 [From Phenergan] Iodinated Contrast- Oral and Allergy Unknown Verified 09/07/18 19:07 IV Dye prochlorperazine Allergy Anaphylaxis Verified 09/07/18 19:07 codeine AdvReac Mild Nausea Verified 09/07/18 19:07 sulfamethoxazole AdvReac Mild Nausea Verified 09/07/18 19:07 [From Bactrim] trimethoprim [From Bactrim] AdvReac Mild Nausea Verified 09/07/18 19:07 hydroxyzine AdvReac Hallucinati Verified 09/07/18 19:07 ons Review of Systems ROS Statement: Those systems with pertinent positive or pertinent negative responses have been documented in the HPI. ROS Other: All systems not noted in ROS Statement are negative. Constitutional: Denies: fever Eyes: Denies: eye pain ENT: Denies: epistaxis Respiratory: Denies: cough Cardiovascular: Denies: chest pain Endocrine: Denies: fatigue Gastrointestinal: Denies: abdominal pain Genitourinary: Denies: dysuria Musculoskeletal: Denies: back pain Skin: Denies: rash Neurological: Reports: headache (Patient states she did have a mild headache earlier.), paresthesias. 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 Past Anesthesia/Blood Transfusion Reactions: No Reported Reaction Past Psychological History: Anxiety, Depression Smoking Status: Never smoker Past Alcohol Use History: None Reported Past Drug Use History: None Reported - Past Family History Father Family Medical History: COPD Additional Family Medical History / Comment(s): FATHER AT AGE 72 YRS OF AGE- HE OF EMPHYSEMA. Mother Family Medical History: Diabetes Mellitus Additional Family Medical History / Comment(s): MOTHER AT AGE 73YRS. General Exam Limitations: no limitations General appearance: alert, in no apparent distress Head exam: Present: atraumatic, normocephalic Eye exam: Present: normal appearance, PERRL, EOMI. Absent: nystagmus ENT exam: Present: normal exam, normal oropharynx, other (Minimal erythema right external canal) Neck exam: Present: normal inspection Respiratory exam: Present: normal lung sounds bilaterally Cardiovascular Exam: Present: regular rate, normal rhythm GI/Abdominal exam: Present: soft. Absent: tenderness Extremities exam: Present: normal inspection Neurological exam: Present: alert, oriented X3, CN II-XII intact. Absent: motor sensory deficit Expanded Neurological exam: Present: protecting the airway Speech: Present: fluid speech Cranial nerves: Facial Sensation: Normal Sensory exam: Upper Extremity Light Touch: Normal, Lower Extremity Light Touch: Normal Motor strength exam: RUE: 5, LUE: 5, RLE: 5, LLE: 5 Eye Response: (4) open spontaneously Motor Response: (6) obeys commands Verbal Response: (5) oriented Psychiatric exam: Present: normal affect, normal mood Skin exam: Present: normal color Course Vital Signs 09/07/18 09/07/18 18:27 19:39 Temperature 98.6 F Pulse Rate 87 73 Respiratory 16 18 Rate Blood Pressure 158/79 136/88 O2 Sat by Pulse 97 98 Oximetry Medical Decision Making - Medical Decision Making Patient reevaluated and resting comfortably in bed. Patient requests medication for anxiety. Exam unchanged. Patient updated on results and need for follow- up. - Lab Data Result diagrams: 09/07/18 19:09/07/18 19:01 Lab Results 09/07/18 09/07/18 09/07/18 Range/Units 19:01 19:01 19:01 WBC 8.3 (3.8-10.6) k/uL RBC 4.26 (3.80-5.40) m/uL Hgb 13.1 (11.4-16.0) gm/dL Hct 39.7 (34.0-46.0) % MCV 93.1 (80.0-100.0) fL MCH 30.8 (25.0-35.0) pg MCHC 33.1 (31.0-37.0) g/dL RDW 15.1 (11.5-15.5) % Plt Count 182 (150-450) k/uL Neutrophils % 56 % Lymphocytes % 33 % Monocytes % 5 % Eosinophils % 4 % Basophils % 1 % Neutrophils # 4.6 (1.3-7.7) k/uL Lymphocytes # 2.7 (1.0-4.8) k/uL Monocytes # 0.4 (0-1.0) k/uL Eosinophils # 0.4 (0-0.7) k/uL Basophils # 0.1 (0-0.2) k/uL PT 10.3 (9.0-12.0) sec INR 1.0 (<1.2) APTT 23.6 (22.0-30.0) sec Sodium 143 (137-145) mmol/L Potassium 4.1 (3.5-5.1) mmol/L Chloride 105 (98-107) mmol/L Carbon Dioxide 27 (22-30) mmol/L Anion Gap 11 mmol/L BUN 22 H (7-17) mg/dL Creatinine 0.79 (0.52-1.04) mg/dL Est GFR (CKD-EPI)AfAm 89 (>60 ml/min/1.73 sqM) Est GFR (CKD-EPI)NonAf 77 (>60 ml/min/1.73 sqM) Glucose 78 (74-99) mg/dL Calcium 9.3 (8.4-10.2) mg/dL Magnesium 2.1 (1.6-2.3) mg/dL Total Bilirubin 0.3 (0.2-1.3) mg/dL AST 32 (14-36) U/L ALT 21 (9-52) U/L Alkaline Phosphatase 64 (38-126) U/L Total Protein 7.2 (6.3-8.2) g/dL Albumin 4.5 (3.5-5.0) g/dL - Radiology Data Radiology results: report reviewed (Computed tomography scan of the brain shows atrophy and chronic small vessel disease.) Disposition Clinical Impression: Paresthesia Disposition: HOME SELF-CARE Condition: Stable Instructions (If sedation given, give patient instructions): Paresthesia (ED) Additional Instructions: Please follow-up with primary care physician in the next couple days for recheck. Return for weakness, confusion, speech problems, balance issues, worsening or changing symptoms or other concerns. Continue daily aspirin. Is patient prescribed a controlled substance at d/c from ED?: No Referrals: Nova Pino MD [Primary Care Provider] - 1-2 days Time of Disposition: 20:00
[2018-09-07 19:19] LABS: Basophils # (A) 0.1 k/uL (0-0.2); Basophils % (A) 1 %; Eosinophils # (A) 0.4 k/uL (0-0.7); Eosinophils % (A) 4 %; HCT 39.7 % (34.0-46.0); HGB 13.1 gm/dL (11.4-16.0); Lymphocytes # (A) 2.7 k/uL (1.0-4.8); Lymphocytes % (A) 33 %; MCH 30.8 pg (25.0-35.0); MCHC 33.1 g/dL (31.0-37.0); MCV 93.1 fL (80.0-100.0); Mean Platelet Volume 7.8; Monocytes # (A) 0.4 k/uL (0-1.0); Monocytes % (A) 5 %; Neutrophils # (A) 4.6 k/uL (1.3-7.7); Neutrophils % (A) 56 %; Platelet Count 182 k/uL (150-450); RBC 4.26 m/uL (3.80-5.40); RDW 15.1 % (11.5-15.5); WBC 8.3 k/uL (3.8-10.6)
[2018-09-07 19:23] LABS: Albumin 4.5 g/dL (3.5-5.0); Calcium 9.3 mg/dL (8.4-10.2); Magnesium 2.1 mg/dL (1.6-2.3); Partial Thromboplastin Time 23.6 sec (22.0-30.0); Potassium 4.1 mmol/L (3.5-5.1); Prothrombin Time 10.3 sec (9.0-12.0); Total Bilirubin 0.3 mg/dL (0.2-1.3); Total Protein 7.2 g/dL (6.3-8.2)
--- NOTE | 2018-09-07 19:25 | CT ---
EXAMINATION TYPE: CT brain wo con DATE OF EXAM: 09/07/2018 HISTORY: right side facial numbness CT DLP: 1095.4 mGycm. Automated Exposure Control for Dose Reduction was Utilized. TECHNIQUE: CT scan of the head is performed without contrast. COMPARISON: CT brain October 08, 2016 FINDINGS: There is no acute intracranial hemorrhage or midline shift identified. There is diffuse v entricular and sulcal prominence consistent with diffuse age-related cerebral atrophy. There is low- attenuation in the periventricular white matter consistent with chronic small vessel ischemic change. Left globe scleral calcification is redemonstrated. Visualized paranasal sinuses are clear. IMPRESSION: No acute intracranial hemorrhage or midline shift. There is mild diffuse age-related ce rebral atrophy and chronic small vessel ischemic change redemonstrated. No significant change from p rior. If clinical concern for acute stroke persist further investigation with MRI study may be sonya rios
[2018-09-07] MEDS ORDERED: LORazepam 1 MG TAB PO STA (19:59)
[2018-09-07 21:50] VITALS: BP 132/90; PULSE 20; RESP 20; TEMP 98
== END 2018-09-07 21:50 | disposition home or self-care (01) ==
LOC: EC 18:20
DX: R20.2 Paresthesia of skin (principal); I10 Essential (primary) hypertension; K21.9 Gastro-esophageal reflux disease without esophagitis; F32.9 Major depressive disorder, single episode, unspecified; F41.9 Anxiety disorder, unspecified; Z79.899 Other long term (current) drug therapy; Z88.1 Allergy status to other antibiotic agents; Z88.2 Allergy status to sulfonamides; Z88.5 Allergy status to narcotic agent; Z91.041 Radiographic dye allergy status; Z88.8 Allergy status to other drugs, medicaments and biological substances
CPT/HCPCS: 36415; 70450; 80053; 83735; 85025; 85610; 85730; 99284

== ENCOUNTER 2018-09-18 17:03 | Emergency (ER) | payer MEDICARE ==
[2018-09-18 17:13] VITALS: RESP 18; TEMP 98.1
[2018-09-18] MEDS ORDERED: KETOROLAC 30 MG/ML 1 ML VIAL IVP STA (17:41)
--- NOTE | 2018-09-18 18:00 | ED ---
General Adult HPI - General Chief complaint: Recheck/Abnormal Lab/Rx Stated complaint: feet swelling Time Seen by Provider: 09/18/18 17:14 Source: patient Mode of arrival: ambulatory Limitations: no limitations - History of Present Illness Initial comments: 73-year-old female presented with 2 weeks of bilateral lower extremity swelling. She states it is improved with compression stockings and elevation, but not resolved. She denies any history of DVT/PE, recent surgery, active cancer, history of CHF, hormone use. Admits to a nonproductive cough but denies any shortness of breath or chest pain. Denies any new medications. - Related Data Home Medications Medication Instructions Recorded Confirmed Acetaminophen Tab [Tylenol] 500 mg PO Q8H PRN 07/11/18 09/18/18 Diazepam [Valium] 5 mg PO HS 07/11/18 09/18/18 Aspirin 325 mg PO DAILY PRN 09/07/18 09/18/18 Buprenorphine HCl [Subutex] 8 mg SL TID PRN 09/07/18 09/18/18 Vxcmwavv-Hcwxmpgtd-Fa Otic 2 drops BOTH EARS Q6H 09/07/18 09/18/18 [Cortisporin Otic Soln] Omeprazole 20 mg PO BID 09/07/18 09/18/18 busPIRone HCL 15 mg PO TID PRN 09/07/18 09/18/18 cloNIDine HCL [Catapres] 0.1 mg PO BID 09/07/18 09/18/18 Allergies Allergy/AdvReac Type Severity Reaction Status Date / Time promethazine HCl Allergy Intermediate Anaphylaxis Verified 09/18/18 18:01 [From Phenergan] azithromycin Allergy Anaphylaxis Verified 09/18/18 18:01 Iodinated Contrast- Oral and Allergy Unknown Verified 09/18/18 18:01 IV Dye prochlorperazine Allergy Anaphylaxis Verified 09/18/18 18:01 codeine AdvReac Mild Nausea Verified 09/18/18 18:01 sulfamethoxazole AdvReac Mild Nausea Verified 09/18/18 18:01 [From Bactrim] trimethoprim [From Bactrim] AdvReac Mild Nausea Verified 09/18/18 18:01 hydroxyzine AdvReac Hallucinati Verified 09/18/18 18:01 ons Review of Systems ROS Statement: Those systems with pertinent positive or pertinent negative responses have been documented in the HPI. Review of Systems Constitutional: Denies fever, chills Eyes: Denies change in vision, Denies pain Ears, nose, mouth, throat: Denies headaches, Denies sore throat Cardiovascular: Denies chest pain. Denies palpitations Respiratory: Denies shortness of breath, positive cough Gastrointestinal: Denies abdominal pain. Denies nausea, vomiting, diarrhea. Genitourinary: Denies hematuria, Denies infections Musculoskeletal: Denies pain, positive swelling Integumentary: Denies rash Neurological: Denies headache, focal weakness, focal numbness Psychiatric: Denies anxiety, Denies depression Hematologic/Lymphatic: Denies easy bleeding or bruising ROS Other: All systems not noted in ROS Statement are negative. 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 Past Anesthesia/Blood Transfusion Reactions: No Reported Reaction Past Psychological History: Anxiety, Depression Smoking Status: Never smoker Past Alcohol Use History: None Reported Past Drug Use History: None Reported - Past Family History Father Family Medical History: COPD Additional Family Medical History / Comment(s): FATHER AT AGE 72 YRS OF AGE- HE OF EMPHYSEMA. Mother Family Medical History: Diabetes Mellitus Additional Family Medical History / Comment(s): MOTHER AT AGE 73YRS. General Exam - General Exam Comments Initial Comments: General: Awake, alert, No acute Distress HENT: Normocephalic. Atraumatic Eyes: PERRL. EOMI. No scleral icterus. No injected conjunctiva Neck: Full ROM Chest/Lungs: Clear to auscultation bilaterally. No wheezing, rhonchi, or rales Cardiac: Regular rate, rhythm. No murmurs or rubs. Bilateral lower extremity pi tting edema up to knees. Abdomen/GI: Soft, nontender, nondistended. No rebound, guarding, or rigidity. Musculoskeletal: Full ROM Skin: Warm, dry, intact Neurologic: A/Ox3, no weakness, no sensory deficit, no abnormal gait, no coordination deficit Limitations: no limitations Course Vital Signs 08/14/19 08/14/19 17:10 20:32 Temperature 98.1 F Pulse Rate 98 84 Respiratory 18 18 Rate Blood Pressure 130/85 121/74 O2 Sat by Pulse 96 99 Oximetry Medical Decision Making - Medical Decision Making [id number] female presented with lower extremity edema. Initial exam the patient is awake, alert, no acute distress. VSS. Patient's lower extremity Dopplers were negative. Laboratory workup was negative for acute process. Instructed the patient to continue using her compression stockings and elevation to treat her lower extremity swelling. At this time she is stable for follow-up with her primary care physician. - Lab Data Result diagrams: 09/18/18 18:08 09/18/18 18:08 Lab Results 09/18/18 09/18/18 09/18/18 Range/Units 18:08 18:08 18:08 WBC 7.3 (3.8-10.6) k/uL RBC 4.12 (3.80-5.40) m/uL Hgb 12.5 (11.4-16.0) gm/dL Hct 37.9 (34.0-46.0) % MCV 91.9 (80.0-100.0) fL MCH 30.3 (25.0-35.0) pg MCHC 32.9 (31.0-37.0) g/dL RDW 13.9 (11.5-15.5) % Plt Count 165 (150-450) k/uL Neutrophils % 55 % Lymphocytes % 32 % Monocytes % 6 % Eosinophils % 5 % Basophils % 1 % Neutrophils # 4.0 (1.3-7.7) k/uL Lymphocytes # 2.3 (1.0-4.8) k/uL Monocytes # 0.4 (0-1.0) k/uL Eosinophils # 0.3 (0-0.7) k/uL Basophils # 0.0 (0-0.2) k/uL Sodium 142 (137-145) mmol/L Potassium 3.8 (3.5-5.1) mmol/L Chloride 102 (98-107) mmol/L Carbon Dioxide 33 H (22-30) mmol/L Anion Gap 7 mmol/L BUN 23 H (7-17) mg/dL Creatinine 0.61 (0.52-1.04) mg/dL Est GFR (CKD-EPI)AfAm >90 (>60 ml/min/1.73 sqM) Est GFR (CKD-EPI)NonAf >90 (>60 ml/min/1.73 sqM) Glucose 94 (74-99) mg/dL Calcium 9.4 (8.4-10.2) mg/dL NT-Pro-B Natriuret Pep 82 pg/mL Disposition Clinical Impression: Swelling of lower extremity Disposition: HOME SELF-CARE Condition: Good Instructions (If sedation given, give patient instructions): Leg Edema (ED) Is patient prescribed a controlled substance at d/c from ED?: No Referrals: Nova Pino MD [Primary Care Provider] - 1-2 days
[2018-09-18 18:24] LABS: Basophils % (A) 1 %; Eosinophils # (A) 0.3 k/uL (0-0.7); Eosinophils % (A) 5 %; HCT 37.9 % (34.0-46.0); HGB 12.5 gm/dL (11.4-16.0); Lymphocytes # (A) 2.3 k/uL (1.0-4.8); Lymphocytes % (A) 32 %; MCH 30.3 pg (25.0-35.0); MCHC 32.9 g/dL (31.0-37.0); MCV 91.9 fL (80.0-100.0); Monocytes # (A) 0.4 k/uL (0-1.0); Monocytes % (A) 6 %; Neutrophils % (A) 55 %; Platelet Count 165 k/uL (150-450); RBC 4.12 m/uL (3.80-5.40); RDW 13.9 % (11.5-15.5); WBC 7.3 k/uL (3.8-10.6)
[2018-09-18 18:28] LABS: African American GFR (CKD) >90 (>60 ml/min/1.73 sqM); Anion Gap 7 mmol/L; Blood Urea Nitrogen 23 mg/dL (7-17); Calcium 9.4 mg/dL (8.4-10.2); Carbon Dioxide 33 mmol/L (22-30); Chloride 102 mmol/L (98-107); Glucose 94 mg/dL (74-99); Potassium 3.8 mmol/L (3.5-5.1); Sodium 142 mmol/L (137-145)
--- NOTE | 2018-09-18 18:29 | XR ---
EXAMINATION TYPE: XR chest 2V DATE OF EXAM: 09/18/2018 COMPARISON: 10/08/2016 HISTORY: Leg edema TECHNIQUE: Frontal and lateral views of the chest are obtained. FINDINGS: There is no heart failure nor confluent pneumonic infiltrate. Costophrenic angles are roc r. Bony thorax is intact. Heart size is normal. IMPRESSION: No active cardiopulmonary disease. No change.
--- NOTE | 2018-09-18 20:03 | US ---
EXAMINATION TYPE: US venous doppler duplex LE DATE OF EXAM: 09/18/2018 7:52 PM COMPARISON: NONE CLINICAL HISTORY: Pain. Pain x 3 days. Pt fell on right leg 3 days ago. No hx of DVT. Not on blood th inners. SIDE PERFORMED: Bilateral TECHNIQUE: The lower extremity deep venous system is examined utilizing real time linear array sonog carie with graded compression, doppler sonography and color-flow sonography. VESSELS IMAGED: External Iliac Vein (EIV) Common Femoral Vein Deep Femoral Vein Greater Saphenous Vein * Femoral Vein Popliteal Vein Small Saphenous Vein * Proximal Calf Veins (* superficial vessels) Right Leg: No evidence of DVT from prox calf veins to EIV. Left Leg: No evidence of DVT from prox calf veins to EIV. IMPRESSION: No evidence of deep venous thrombosis in both legs.
[2018-09-18 20:35] VITALS: BP 121/74; PULSE 84
== END 2018-09-18 21:11 | disposition home or self-care (01) ==
LOC: EC 17:03
DX: R60.0 Localized edema (principal); R05 Cough; I10 Essential (primary) hypertension; K21.9 Gastro-esophageal reflux disease without esophagitis; F11.20 Opioid dependence, uncomplicated; F41.9 Anxiety disorder, unspecified; Z88.1 Allergy status to other antibiotic agents; Z88.2 Allergy status to sulfonamides; Z88.5 Allergy status to narcotic agent; Z88.8 Allergy status to other drugs, medicaments and biological substances; Z91.041 Radiographic dye allergy status; Z79.899 Other long term (current) drug therapy; Z82.5 Family history of asthma and other chronic lower respiratory diseases
CPT/HCPCS: 36415; 83880; 80048; 85025; 71046; 93970; 99284; 96374; J1885

== ENCOUNTER → 2020-07-27 | Outpatient (CLI) | payer MEDICARE ==
[2020-07-27 15:20] LABS: Basophils # (A) 0.02 X 10*3/uL (0.00-0.10); Basophils % (A) 0.3 %; Eosinophils % (A) 4.3 %; HCT 39.3 % (37.2-46.3); HGB 12.8 g/dL (12.0-15.0); Lymphocytes # (A) 2.03 X 10*3/uL (0.90-5.00); Lymphocytes % (A) 29.3 %; MCH 30.3 pg (27.0-32.0); MCHC 32.6 g/dL (32.0-37.0); MCV 93.1 fL (80.0-97.0); Monocytes # (A) 0.56 X 10*3/uL (0.20-1.00); Monocytes % (A) 8.1 %; Neutrophils % (A) 57.9 %; Platelet Count 182 X 10*3/uL (140-440); RBC 4.22 X 10*6/uL (4.10-5.20); RDW 12.8 % (11.5-14.5); WBC 6.92 X 10*3/uL (4.50-10.00)
[2020-07-27 19:07] LABS: T4, Free (Free Thyroxine) 0.9 ng/dL (0.80-1.80)
[2020-07-27 19:15] LABS: African American GFR (CKD) 85.4 (60.0-200.0); Albumin 4.6 g/dL (3.80-4.90); Anion Gap 7.3 mmol/L (4.00-12.00); BUN/Creat Ratio 26.25 Ratio (12.00-20.00); Carbon Dioxide 27.7 mmol/L (21.6-31.8); Chol/HDL Ratio 1.98; Globulin 2.3 g/dL (1.6-3.3); LDL Cholesterol,Calculated 35.6 mg/dL (0.0-131.0); Non-African American GFR(CKD) 73.7 (60.0-200.0); Potassium 4.6 mmol/L (3.5-5.5); Total Bilirubin 0.7 mg/dL (0.2-1.2); Total Protein 6.9 g/dL (6.2-8.2); VLDL Calculation 12.4 mg/dL (5.00-40.00)
== END | disposition home or self-care (01) ==
LOC: LABWHC1 10:31
PROVIDERS: ATTEND Internal Medicine
DX: G47.00 Insomnia, unspecified (principal); E78.5 Hyperlipidemia, unspecified
CPT/HCPCS: 36415; 80053; 80061; 84439; 84443; 85025

== ENCOUNTER → 2020-07-27 | Outpatient (CLI) | payer MEDICARE ==
--- NOTE | 2020-07-27 11:44 | XR ---
EXAMINATION TYPE: XR knee complete bilateral DATE OF EXAM: 07/27/2020 CLINICAL HISTORY: pain TECHNIQUE: Three views of the bilateral knees are obtained. COMPARISON: None. FINDINGS: There is no acute fracture/dislocation. The tri-compartment joint spaces appear moderatel y narrowed. The overlying soft tissue appears unremarkable. IMPRESSION: There is no acute fracture or dislocation.ICD 10 NO FRACTURE, INITIAL EVALUATION
== END | disposition home or self-care (01) ==
LOC: RADXRMAIN 10:57
PROVIDERS: ATTEND Internal Medicine
DX: M25.561 Pain in right knee (principal); M25.562 Pain in left knee

== ENCOUNTER 2023-02-27 14:47 | Emergency (ER) | payer MEDICARE ==
[2023-02-27 15:04] VITALS: BP 125/76; PULSE 81; RESP 16; TEMP 98.3
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
== END 2023-02-27 16:27 | disposition home or self-care (01) ==
LOC: EC 14:47
DX: Z76.0 Encounter for issue of repeat prescription (principal); E11.9 Type 2 diabetes mellitus without complications; I10 Essential (primary) hypertension; M19.90 Unspecified osteoarthritis, unspecified site; F41.9 Anxiety disorder, unspecified; F32.A Depression, unspecified; K21.9 Gastro-esophageal reflux disease without esophagitis; Z79.1 Long term (current) use of non-steroidal anti-inflammatories (NSAID); Z79.899 Other long term (current) drug therapy; Z79.82 Long term (current) use of aspirin; Z91.041 Radiographic dye allergy status; Z88.5 Allergy status to narcotic agent; Z88.6 Allergy status to analgesic agent; Z88.8 Allergy status to other drugs, medicaments and biological substances; Z88.1 Allergy status to other antibiotic agents; Z88.2 Allergy status to sulfonamides
CPT/HCPCS: 99283

== ENCOUNTER 2023-03-05 15:54 | Emergency (ER) | payer MEDICARE ==
[2023-03-05 16:37] VITALS: BP 124/76; PULSE 71; RESP 20; TEMP 98.5
[2023-03-05 16:43] LABS: Appearance,Urine Clear (Clear); Bilirubin,Urine Negative (Negative); Blood,Urine Negative (Negative); Color,Urine Yellow; Glucose,Urine (UA) Negative (Negative); Hyaline Casts,Urine 4 /lpf (0-2); Ketones,Urine Negative (Negative); Leukocyte Esterase,Urine Small (Negative); Mucus,Urine Many /hpf; Nitrite,Urine Negative (Negative); PH, Urine 5.5 (5.0-8.0); Protein,Urine Trace (Negative); RBC,Urine 4 /hpf (0-5); Specific Gravity,Urine 1.027 (1.001-1.035); Squamous Epithelial Cell,Urine <1 /hpf (0-4); Urobilinogen,Urine <2.0 mg/dL (<2.0); WBC,Urine 3 /hpf (0-5)
--- NOTE | 2023-03-05 18:19 | ED ---
Female Urogenital HPI - General Chief complaint: Urogenital Stated complaint: Dysuria Time Seen by Provider: 03/05/23 18:17 Source: patient, RN notes reviewed Mode of arrival: ambulatory Limitations: no limitations - History of Present Illness Initial comments: This is a 77-year-old female who presents to the emergency department for concerns of a UTI. Reports a history of frequent UTIs and is experiencing urinary frequency as well as lower abdominal pain/pressure. Denies any fevers/chills, nausea, or vomiting. - Related Data Home Medications Medication Instructions Recorded Confirmed Acetaminophen Tab [Tylenol] 500 mg PO Q8H PRN 07/11/18 09/18/18 diazePAM [Valium] 5 mg PO HS 07/11/18 09/18/18 Aspirin 325 mg PO DAILY PRN 09/07/18 09/18/18 Fazebgil-Kooujryrn-Yg Otic 2 drops BOTH EARS Q6H 09/07/18 09/18/18 [Cortisporin Otic Soln] Omeprazole 20 mg PO BID 09/07/18 09/18/18 buprenorphine HCL [Subutex] 8 mg SL TID PRN 09/07/18 09/18/18 busPIRone HCL 15 mg PO TID PRN 09/07/18 09/18/18 cloNIDine HCL [Catapres] 0.1 mg PO BID 09/07/18 09/18/18 Previous Rx's Medication Instructions Recorded Famotidine [Pepcid] 20 mg PO BID 30 Days #60 tablet 02/27/23 Loratadine [Claritin] 10 mg PO DAILY 30 Days #30 tab 02/27/23 Ondansetron Odt [Zofran Odt] 4 mg PO Q8HR PRN 7 Days #21 tab 02/27/23 buprenorphine HCL [Subutex] 8 mg SL TID PRN 7 Days #21 tab 02/27/23 Allergies Allergy/AdvReac Type Severity Reaction Status Date / Time promethazine HCl Allergy Intermediate Anaphylaxis Verified 03/05/23 16:18 [From Phenergan] azithromycin Allergy Anaphylaxis Verified 03/05/23 16:18 Iodinated Contrast Media Allergy Unknown Verified 03/05/23 16:18 [Iodinated Contrast- Oral and IV Dye] prochlorperazine Allergy Anaphylaxis Verified 03/05/23 16:18 codeine AdvReac Mild Nausea Verified 03/05/23 16:18 sulfamethoxazole AdvReac Mild Nausea Verified 03/05/23 16:18 [From Bactrim] trimethoprim [From Bactrim] AdvReac Mild Nausea Verified 03/05/23 16:18 hydroxyzine AdvReac Hallucinati Verified 03/05/23 16:18 ons Review of Systems ROS Statement: Those systems with pertinent positive or pertinent negative responses have been documented in the HPI. ROS Other: All systems not noted in ROS Statement are negative. 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 Past Anesthesia/Blood Transfusion Reactions: No Reported Reaction Past Psychological History: Anxiety, Depression Smoking Status: Never smoker Past Alcohol Use History: None Reported Past Drug Use History: None Reported - Past Family History Father Family Medical History: COPD Additional Family Medical History / Comment(s): FATHER AT AGE 72 YRS OF AGE- HE OF EMPHYSEMA. Mother Family Medical History: Diabetes Mellitus Additional Family Medical History / Comment(s): MOTHER AT AGE 73YRS. General Exam - General Exam Comments Initial Comments: Visual Physical Exam Vital signs reviewed General: Well-appearing, nontoxic, no acute distress. Head: Normocephalic, atraumatic Eyes: PERRLA, EOMI ENT: Airway patent Chest: Nonlabored breathing Skin: No visual rash, normal skin tone Neuro: Alert and oriented 3 Musculoskeletal: No gross abnormalities Limitations: no limitations Course Vital Signs 03/05/23 16:16 Temperature 98.5 F Pulse Rate 71 Respiratory 20 Rate Blood Pressure 124/76 O2 Sat by Pulse 99 Oximetry Medical Decision Making - Medical Decision Making I performed the QuickNote portion of this chart. Signed Alanna Miramontes PA-C. Patient left AMA from the waiting room prior to full evaluation as well as completion and review of ordered testing. - Lab Data Lab Results 03/05/23 Range/Units 16:20 Urine Color Yellow Urine Appearance Clear (Clear) Urine pH 5.5 (5.0-8.0) Ur Specific [place] 1.027 (1.001-1.035) Urine Protein Trace H (Negative) Urine Glucose (UA) Negative (Negative) Urine Ketones Negative (Negative) Urine Blood Negative (Negative) Urine Nitrite Negative (Negative) Urine Bilirubin Negative (Negative) Urine Urobilinogen <2.0 (<2.0) mg/dL Ur Leukocyte Esterase Small H (Negative) Urine RBC 4 (0-5) /hpf Urine WBC 3 (0-5) /hpf Ur Squamous Epith Cells <1 (0-4) /hpf Hyaline Casts 4 H (0-2) /lpf Urine Mucus Many H (None) /hpf Disposition Clinical Impression: Dysuria Disposition: LEFT AGAINST MEDICAL ADVICE Referrals: None,Stated [Primary Care Provider] - 1-2 days
== END 2023-03-05 19:30 | disposition left against medical advice (07) ==
LOC: EC 15:54
DX: R30.0 Dysuria (principal); E11.9 Type 2 diabetes mellitus without complications; I10 Essential (primary) hypertension; K21.9 Gastro-esophageal reflux disease without esophagitis; M19.90 Unspecified osteoarthritis, unspecified site; F41.9 Anxiety disorder, unspecified; F32.A Depression, unspecified; Z79.1 Long term (current) use of non-steroidal anti-inflammatories (NSAID); Z79.899 Other long term (current) drug therapy; Z79.82 Long term (current) use of aspirin; Z91.041 Radiographic dye allergy status; Z88.2 Allergy status to sulfonamides; Z88.5 Allergy status to narcotic agent; Z88.1 Allergy status to other antibiotic agents; Z88.6 Allergy status to analgesic agent; Z88.8 Allergy status to other drugs, medicaments and biological substances; Z53.29 Procedure and treatment not carried out because of patient's decision for other reasons
CPT/HCPCS: 81001; 99283